=== PATIENT | male | born 1985 | race Caucasian/White ===

== ENCOUNTER 2021-02-02 04:34 | Emergency (ER) | payer OTHER ==
[2021-02-02 04:41] VITALS: BP 147/89; PULSE 91; RESP 16; TEMP 97.7
--- NOTE | 2021-02-02 05:14 | ED ---
Nausea/Vomiting/Diarrhea HPI - General Chief complaint: Nausea/Vomiting/Diarrhea Stated complaint: Dental Pain Time Seen by Provider: 02/02/21 04:54 Source: patient Mode of arrival: ambulatory Limitations: no limitations - History of Present Illness Initial comments: This patient is a 35-year-old man who presents to have evaluation for nausea and vomiting. Patient states that the symptoms had come on this evening. He is concerned that it could be related to one of 2 things. He has a right maxillary tooth that he was concerned may be developing infection, and he also had eaten some food he was suspicious of. In relation to the tooth, he is not having fever or chills, no tooth pain and there is no local swelling. He is not having any abdominal pain. No change in bowel movements. No hematemesis. MD complaint: nausea, vomiting -: hour(s) Description of Vomiting: food contents Associated Abdominal Pain: No Radiation: none Improves with: none Worsens with: none Associated Symptoms: denies other symptoms - Related Data Previous Rx's Medication Instructions Recorded Amoxicillin 875 mg PO Q12HR #14 tablet 02/02/21 Ondansetron Odt [Zofran ODT] 4 mg PO Q8HR PRN #10 tab 02/02/21 Allergies Allergy/AdvReac Type Severity Reaction Status Date / Time No Known Allergies Allergy Verified 02/02/21 04:41 Review of Systems ROS Statement: Those systems with pertinent positive or pertinent negative responses have been documented in the HPI. ROS Other: All systems not noted in ROS Statement are negative. Constitutional: Denies: fever, chills Eyes: Denies: eye pain ENT: Denies: dental pain Respiratory: Denies: cough, dyspnea Cardiovascular: Denies: chest pain Gastrointestinal: Reports: nausea, vomiting. Denies: abdominal pain, diarrhea, constipation Genitourinary: Denies: dysuria, hematuria Musculoskeletal: Denies: back pain Skin: Denies: rash, lesions Neurological: Denies: weakness, numbness Past Medical History Past Medical History: No Reported History Past Surgical History: No Surgical Hx Reported Past Psychological History: No Psychological Hx Reported Smoking Status: Current every day smoker Past Alcohol Use History: Rare Past Drug Use History: Cocaine, Methamphetamine General Exam Limitations: no limitations General appearance: alert, in no apparent distress Head exam: Present: atraumatic, normocephalic Eye exam: Present: normal appearance, EOMI. Absent: scleral icterus, conjunctival injection ENT exam: Present: normal oropharynx, other (Dental caries, tooth #2. There is no abscess) Neck exam: Present: full ROM. Absent: tenderness Respiratory exam: Present: normal lung sounds bilaterally. Absent: respiratory distress, wheezes, rales, rhonchi Cardiovascular Exam: Present: regular rate, normal rhythm, normal heart sounds. Absent: systolic murmur, diastolic murmur, rubs, gallop GI/Abdominal exam: Present: soft. Absent: distended, tenderness, guarding, rebound, rigid, mass Neurological exam: Present: alert Skin exam: Present: warm, dry, intact, normal color. Absent: rash Course Vital Signs 02/02/21 04:36 Temperature 97.7 F Pulse Rate 91 Respiratory 16 Rate Blood Pressure 147/89 O2 Sat by Pulse 98 Oximetry Disposition Clinical Impression: Vomiting, Dental caries Disposition: HOME SELF-CARE Instructions (If sedation given, give patient instructions): Acute Nausea and Vomiting (ED) Prescriptions: Amoxicillin 875 mg PO Q12HR #14 tablet Ondansetron Odt [Zofran ODT] 4 mg PO Q8HR PRN #10 tab PRN Reason: Nausea Is patient prescribed a controlled substance at d/c from ED?: No Referrals: None,Stated [Primary Care Provider] - 1-2 days
[2021-02-02] MEDS ORDERED: ONDANSETRON ODT 4 MG TAB PO STA (05:18)
== END 2021-02-02 05:31 | disposition home or self-care (01) ==
LOC: EC 04:34
DX: R11.2 Nausea with vomiting, unspecified (principal); K02.9 Dental caries, unspecified; F17.200 Nicotine dependence, unspecified, uncomplicated
CPT/HCPCS: 99283

== ENCOUNTER 2023-12-27 12:25 | Emergency (ER) | payer OTHER ==
--- NOTE | 2023-12-27 12:44 | ED ---
Recheck HPI - General Chief Complaint: Recheck/Abnormal Lab/Rx Stated Complaint: abnormal labs/recheck Time Seen by Provider: 12/27/23 12:35 Source: patient, RN notes reviewed Mode of arrival: ambulatory Limitations: no limitations - History of Present Illness Initial Comments: This is a 38-year-old male who presents to the emergency department for a med ication refill. Patient has been on Zoloft, 50 mg, for a long period of time and states that this works very well for him. He is trying to find a new primary care provider, and was concerned about running out, so he began splitting the pills in half, and states that he noticed that these are not as effective at the smaller dose. He is requesting a short-term refill and a list of local primary care providers to become established for ongoing medical care. Denies any suicidal or homicidal ideations and he has no other concerns or complaints. MD Complaint: medication refill request - Related Data Previous Rx's Medication Instructions Recorded Amoxicillin 875 mg PO Q12HR #14 tablet 02/02/21 Ondansetron Odt [Zofran ODT] 4 mg PO Q8HR PRN #10 tab 02/02/21 Sertraline [Zoloft] 50 mg PO DAILY #30 tab 12/27/23 Allergies Allergy/AdvReac Type Severity Reaction Status Date / Time No Known Allergies Allergy Verified 02/02/21 04:41 Review of Systems ROS Statement: Those systems with pertinent positive or pertinent negative responses have been documented in the HPI. ROS Other: All systems not noted in ROS Statement are negative. Past Medical History Past Medical History: No Reported History Past Surgical History: No Surgical Hx Reported Past Psychological History: Anxiety Smoking Status: Current every day smoker Past Alcohol Use History: Rare Past Drug Use History: Cocaine, Methamphetamine General Exam Limitations: no limitations General appearance: alert, in no apparent distress Head exam: Present: atraumatic, normocephalic, normal inspection Respiratory exam: Present: normal lung sounds bilaterally. Absent: respiratory distress, wheezes, rales, rhonchi, stridor Cardiovascular Exam: Present: regular rate, normal rhythm, normal heart sounds. Absent: systolic murmur, diastolic murmur, rubs, gallop, clicks Neurological exam: Present: alert, oriented X3, CN II-XII intact Psychiatric exam: Present: normal affect, normal mood Skin exam: Present: warm, dry, intact, normal color. Absent: rash Course Vital Signs 12/27/23 12:30 Temperature 98.6 F Pulse Rate 84 Respiratory 16 Rate Blood Pressure 120/78 O2 Sat by Pulse 98 Oximetry Medical Decision Making - Medical Decision Making This is a 38-year-old male who presents to the emergency department for medication refills. Was pt. sent in by a medical professional or institution? @ -No Did you speak to anyone other than the patient for history? @ -No Did you review nursing and triage notes? @ -Yes, and I agree, it is accurate with regards to the patient's symptoms. Were old charts reviewed? @ -No Differential Diagnosis? @ -Not applicable EKG interpreted by me (3pts min.)? @ -Not obtained X-rays interpreted by me (1pt min.)? @ -Not obtained CT interpreted by me (1pt min.)? @ -Not obtained U/S interpreted by me (1pt. min.)? @ -Not obtained What testing was considered but not performed? (CT, X-rays, U/S, labs)? Why? @ -None What meds were considered but not given? Why? @ -None Did you discuss the management of the patient with other professionals? @ -No Did you reconcile home meds? @ -No Was smoking cessation discussed for >3mins.? @ -No Was critical care preformed (if so, how long)? @ -No Were there social determinants of health that impacted care today? How? (Homelessness, low income, unemployed, alcoholism, drug addiction, transportati on, low edu. Level, literacy, decrease access to med. care, correction, rehab)? @ -No Was there de-escalation of care discussed even if they declined? (Discuss DNR or withdrawal of care, Hospice)? @ -No What co-morbidities impacted this encounter? (DM, HTN, Smoking, COPD, CAD, Cancer, CVA, Hep., AIDS, mental health diagnosis, sleep apnea, morbid obesity)? @ -Mental health diagnosis Was patient admitted / discharged? @ -Discharged. Refill on Zoloft, 50mg, was provided. He was also given a list of local primary care providers as requested and discharged home in stable condition. Undiagnosed new problem with uncertain prognosis? @ -None Drug Therapy requiring intensive monitoring for toxicity (Heparin, Nitro, Insulin, Cardizem)? @ -None Were any procedures done? @ -None Diagnosis/symptom? @ -Encounter for medication refill Acute, or Chronic, or Acute on Chronic? @ -Acute Uncomplicated (without systemic symptoms) or Complicated (systemic symptoms)? @ -Uncomplicated Side effects of treatment? @ -None Exacerbation, Progression, or Severe Exacerbation] @ -Not applicable Poses a threat to life or bodily function? @ -No Return precautions reviewed in depth, the patient is instructed to return to the emergency department with any new, worsening, or concerning symptoms. Patient verbalized understanding. This case was discussed in detail with the attending ED physician, Dr. Collier. Presentation, findings, and treatment plan discussed in detail as well. Disposition Clinical Impression: Encounter for medication refill Disposition: HOME SELF-CARE Additional Instructions: Return to the emergency department with any new, worsening, or concerning symptoms. Continue taking your Zoloft daily as prescribed. Use the list of local primary care providers to become established for ongoing medical care. Prescriptions: Sertraline [Zoloft] 50 mg PO DAILY #30 tab Is patient prescribed a controlled substance at d/c from ED?: No Referrals: None,Stated [Primary Care Provider] - 1-2 days Forms: Area PCPs Time of Disposition: 12:44
[2023-12-27 12:48] VITALS: BP 120/78; PULSE 84; RESP 16; TEMP 98.6
== END 2023-12-27 13:00 | disposition home or self-care (01) ==
LOC: EC 12:25
DX: Z76.0 Encounter for issue of repeat prescription (principal); F17.200 Nicotine dependence, unspecified, uncomplicated; Z86.59 Personal history of other mental and behavioral disorders
CPT/HCPCS: 99282

== ENCOUNTER 2024-11-17 22:44 | Inpatient (IN) | payer MEDICAID, OTHER ==
--- NOTE | 2024-11-17 23:42 | ED ---
General Adult HPI - General Chief complaint: Psychiatric Symptoms Stated complaint: Psych eval Time Seen by Provider: 11/17/24 23:02 Source: patient, EMS, RN notes reviewed, old records reviewed Mode of arrival: EMS Limitations: no limitations - History of Present Illness Initial comments: Patient is a 39-year-old male who presents emergency department for suicide attempt. Patient has a history of auditory hallucinations, suicidal ideations. Does not follow-up with a therapist. Has not been evaluated. Mental health previously at our facility. States that at home today, he tied zip ties around his neck. Previously has attempted suicide by holding a rolled up pillowcase around his neck however he stopped. Therefore use of ties as he felt he could not is easily removed these. States that soon as he tighten them he was having issues breathing and called for help. They were able to cut the zip ties off. They did leave an imprint around his neck. He denies any acute complaints at this time. Denies chest pain or shortness of breath. Did not faint or lose consciousness. Has no significant past medical history otherwise. Was drinking some alcohol today as well as a history of polysubstance abuse but states he has been clean other than alcohol. Presents for further evaluation at this time. - Related Data Previous Rx's Medication Instructions Recorded Amoxicillin 875 mg PO Q12HR #14 tablet 02/02/21 Ondansetron Odt [Zofran ODT] 4 mg PO Q8HR PRN #10 tab 02/02/21 Sertraline [Zoloft] 50 mg PO DAILY #30 tab 12/27/23 Allergies Allergy/AdvReac Type Severity Reaction Status Date / Time No Known Allergies Allergy Verified 11/17/24 23:14 Review of Systems ROS Statement: Those systems with pertinent positive or pertinent negative responses have been documented in the HPI. Review of Systems: CONST: Denies fever EYES: Denies blurry vision ENT: Denies nasal congestion C/V: Denies Chest pain RESP: Denies shortness of breath GI: Denies abdominal pain : Denies dysuria SKIN: Denies rash. MSK: Denies joint pain. NEURO: Denies headache ROS Other: All systems not noted in ROS Statement are negative. Past Medical History Past Medical History: No Reported History History of Any Multi-Drug Resistant Organisms: None Reported Past Surgical History: No Surgical Hx Reported Past Psychological History: Anxiety, Depression Smoking Status: Current every day smoker Past Alcohol Use History: Rare Past Drug Use History: Cocaine, Methamphetamine General Exam - General Exam Comments Initial Comments: General: Appears in no acute distress. HEAD: Normal with no signs of head trauma. Baker sign. Negative raccoon eyes. EYES: PERRLA, EOMI, conjunctiva normal, no discharge. Pupils are 3 mm and equal bilaterally. ENT: Hearing grossly intact, normal oropharynx. Patient has time shaffer on his neck and imprints but no obvious wounds or bleeding. No stridor auscultated. No respiratory distress. Oropharynx is within normal limits. RESPIRATORY: Clear breath sounds bilaterally. No wheezes, rales, or rhonchi. No wheezing. Clear breath sounds bilaterally. No hypoxia or increased work of breathing. C/V: Regular rate and rhythm. S1 and S2 auscultated, no edema, peripheral pulses 2+ and intact throughout ABD: Abd is soft, nontender, nondistended EXT: Normal range of motion, no obvious deformity SKIN: No rashes or lesions observed on exposed skin. NEURO: Alert and oriented x 4. Cranial nerves II-XII intact. No focal sensory or strength deficits. Limitations: no limitations Course Vital Signs 11/17/24 22:49 Temperature 97.9 F Pulse Rate 74 Respiratory 18 Rate Blood Pressure 121/87 O2 Sat by Pulse 98 Oximetry Medical Decision Making - Medical Decision Making Was pt. sent in by a medical professional or institution ([facility], [employer], urgent care, hospital, or intermediate...) When possible be specific @ -No Did you speak to anyone other than the patient for history (EMS, parent, family, police, friend...)? What history was obtained from this source @ -No Did you review nursing and triage notes (agree or disagree)? Why? @ -I reviewed and agree with nursing and triage notes Were old charts reviewed (outside hosp., previous admission, EMS record, old EKG, old radiological studies, urgent care reports/EKG's, intermediate records)? Report findings @ -No old charts were reviewed Differential Diagnosis (chest pain, altered mental status, abdominal pain women, abdominal pain men, vaginal bleeding, weakness, fever, dyspnea, syncope, headache, dizziness, GI bleed, back pain, seizure, CVA, palpatations, mental health, musculoskeletal)? @ -Differential Mental Health Depression, anxiety, bipolar, psychosis, schizophrenia, borderline personality, situational depression, adjustment disorder, behavioral disorder, brain tumor, malingering, substance abuse, encephalopathy, medication reaction, dementia, hypothyroidism, degenerative neurologic disorder, lupus.... This is not meant to be all-inclusive list. Also includes carotid artery injury. EKG interpreted by me (3pts min.). @ -As above X-rays interpreted by me (1pt min.). @ -Chest x-ray reveals no obvious acute cardiopulmonary process. CT interpreted by me (1pt min.). @ -CT brain showed no obvious acute intracranial process. CT angiogram of the head and neck shows no obvious significant stenosis or injury. U/S interpreted by me (1pt. min.). @ -None done What testing was considered but not performed or refused? (CT, X-rays, U/S, labs)? Why? @ -None What meds were considered but not given or refused? Why? @ -None Did you discuss the management of the patient with other professionals (professionals i.e. , PA, VEGETABLE F[employer]ER, lab, RT, psych nurse, social media project manager, employment coordinator, teacher, deputy juvenile officer, case briefer)? Give summary @ -No Was smoking cessation discussed for >3mins.? @ -No Was critical care preformed (if so, how long)? @ -No Were there social determinants of health that impacted care today? How? (Homele ssness, low income, unemployed, alcoholism, drug addiction, transportation, low edu. Level, literacy, decrease access to med. care, detention, rehab)? @ -No Was there de-escalation of care discussed even if they declined (Discuss DNR or withdrawal of care, Hospice)? DNR status @ -No What co-morbidities impacted this encounter? (DM, HTN, Smoking, COPD, CAD, Cancer, CVA, ARF, Chemo, Hep., AIDS, mental health diagnosis, sleep apnea, morbid obesity)? @ -None Was patient admitted / discharged? Hospital course, mention meds given and route, prescriptions, significant lab abnormalities, going to OR and other pertinent info. @ -Patient presents emergency department for suicide attempt. Patient attem pted to tie zip ties around his neck. Does have imprints of the zip ties but no carotid bruit and no evidence of stridor auscultated. We will obtain CT imaging of the neck as well as brain. We will also obtain basic labs and COVID swab. Suicide precautions ordered. Sitter ordered. Patient is in no respiratory distress and vital signs are within acceptable limits. Patient was in agreement this plan. He will be given a 1 L fluid bolus at this time. EKG shows no signs of acute ischemia.Imaging returned negative for any obvious acute process. There was a long delay in obtaining CT brain and CT angiogram image results due to delay from radiology however these eventually came back negative for any obvious acute process. Laboratory studies are unremarkable. Alcohol intoxication of 64 On reevaluation, I discussed the results with the patient. Patient is medically cleared for evaluation by psychiatry at this time. Disposition pending psychiatric evaluation. He was in agreement this plan. EPS evaluated the patient and determined that he does meet inpatient psychiatric criteria. Patient requires transfer. Clinical certificate completed by myself. Undiagnosed new problem with uncertain prognosis? @ -No Drug Therapy requiring intensive monitoring for toxicity (Heparin, Nitro, Insulin, Cardizem)? @ -No Were any procedures done? @ -No Diagnosis/symptom? @ -Suicide attempt, Alcohol intoxication Acute, or Chronic, or Acute on Chronic? @ -Acute Uncomplicated (without systemic symptoms) or Complicated (systemic symptoms)? @ -Complicated Side effects of treatment? @ -None Exacerbation, Progression, or Severe Exacerbation] @ -No Poses a threat to life or bodily function? @ -Yes - Lab Data Result diagrams: 11/17/24 23:08 11/17/24 23:08 Lab Results 11/17/24 11/17/24 11/17/24 Range/Units 23:08 23:08 23:08 WBC 10.2 (3.8-10.6) k/uL RBC 4.95 (4.30-5.90) m/uL Hgb 15.4 (13.0-17.5) gm/dL Hct 44.6 (39.0-53.0) % MCV 90.2 (80.0-100.0) fL MCH 31.2 (25.0-35.0) pg MCHC 34.6 (31.0-37.0) g/dL RDW 12.0 (11.5-15.5) % Plt Count 271 (150-450) k/uL MPV 7.3 Neutrophils % 72 % Lymphocytes % 19 % Monocytes % 5 % Eosinophils % 2 % Basophils % 1 % Neutrophils # 7.4 (1.3-7.7) k/uL Lymphocytes # 1.9 (1.0-4.8) k/uL Monocytes # 0.5 (0-1.0) k/uL Eosinophils # 0.2 (0-0.7) k/uL Basophils # 0.1 (0-0.2) k/uL PT 10.7 (10.0-12.5) sec INR 1.0 (<1.2) APTT 23.6 (22.0-30.0) sec Sodium (137-145) mmol/L Potassium (3.5-5.1) mmol/L Chloride (98-107) mmol/L Carbon Dioxide (22-30) mmol/L Anion Gap mmol/L BUN (9-20) mg/dL Creatinine (0.66-1.25) mg/dL Est GFR (CKD-EPI)AfAm (>60 ml/min/1.73 sqM) Est GFR (CKD-EPI)NonAf (>60 ml/min/1.73 sqM) Glucose (74-99) mg/dL Calcium (8.4-10.2) mg/dL Total Bilirubin (0.2-1.3) mg/dL AST (17-59) U/L ALT (4-49) U/L Alkaline Phosphatase (38-126) U/L Total Protein (6.3-8.2) g/dL Albumin (3.5-5.0) g/dL Urine Color Colorless Urine Appearance Clear (Clear) Urine pH 6.0 (5.0-8.0) Ur Specific [place] 1.004 (1.001-1.035) Urine Protein Negative (Negative) Urine Glucose (UA) Negative (Negative) Urine Ketones Negative (Negative) Urine Blood Negative (Negative) Urine Nitrite Negative (Negative) Urine Bilirubin Negative (Negative) Urine Urobilinogen <2.0 (<2.0) mg/dL Ur Leukocyte Esterase Negative (Negative) Urine Opiates Screen (NotDetected) Ur Oxycodone Screen (NotDetected) Urine Methadone Screen (NotDetected) Ur Barbiturates Screen (NotDetected) U Tricyclic Antidepress (NotDetected) Ur Phencyclidine Scrn (NotDetected) Ur Amphetamines Screen (NotDetected) U Methamphetamines Scrn (NotDetected) U Benzodiazepines Scrn (NotDetected) Urine Cocaine Screen (NotDetected) U Marijuana (THC) Screen (NotDetected) Serum Alcohol mg/dL SARS-CoV-2 (PCR) (Not Detectd) 11/17/24 11/17/24 11/17/24 Range/Units 23:08 23:10 23:10 WBC (3.8-10.6) k/uL RBC (4.30-5.90) m/uL Hgb (13.0-17.5) gm/dL Hct (39.0-53.0) % MCV (80.0-100.0) fL MCH (25.0-35.0) pg MCHC (31.0-37.0) g/dL RDW (11.5-15.5) % Plt Count (150-450) k/uL MPV Neutrophils % % Lymphocytes % % Monocytes % % Eosinophils % % Basophils % % Neutrophils # (1.3-7.7) k/uL Lymphocytes # (1.0-4.8) k/uL Monocytes # (0-1.0) k/uL Eosinophils # (0-0.7) k/uL Basophils # (0-0.2) k/uL PT (10.0-12.5) sec INR (<1.2) APTT (22.0-30.0) sec Sodium 137 (137-145) mmol/L Potassium 3.6 (3.5-5.1) mmol/L Chloride 102 (98-107) mmol/L Carbon Dioxide 21 L (22-30) mmol/L Anion Gap 14 mmol/L BUN 16 (9-20) mg/dL Creatinine 0.81 (0.66-1.25) mg/dL Est GFR (CKD-EPI)AfAm >90 (>60 ml/min/1.73 sqM) Est GFR (CKD-EPI)NonAf >90 (>60 ml/min/1.73 sqM) Glucose 97 (74-99) mg/dL Calcium 9.9 (8.4-10.2) mg/dL Total Bilirubin 0.7 (0.2-1.3) mg/dL AST 38 (17-59) U/L ALT 26 (4-49) U/L Alkaline Phosphatase 58 (38-126) U/L Total Protein 7.8 (6.3-8.2) g/dL Albumin 5.1 H (3.5-5.0) g/dL Urine Color Urine Appearance (Clear) Urine pH (5.0-8.0) Ur Specific [place] (1.001-1.035) Urine Protein (Negative) Urine Glucose (UA) (Negative) Urine Ketones (Negative) Urine Blood (Negative) Urine Nitrite (Negative) Urine Bilirubin (Negative) Urine Urobilinogen (<2.0) mg/dL Ur Leukocyte Esterase (Negative) Urine Opiates Screen Not Detected (NotDetected) Ur Oxycodone Screen Not Detected (NotDetected) Urine Methadone Screen Not Detected (NotDetected) Ur Barbiturates Screen Not Detected (NotDetected) U Tricyclic Antidepress Not Detected (NotDetected) Ur Phencyclidine Scrn Not Detected (NotDetected) Ur Amphetamines Screen Not Detected (NotDetected) U Methamphetamines Scrn Not Detected (NotDetected) U Benzodiazepines Scrn Not Detected (NotDetected) Urine Cocaine Screen Not Detected (NotDetected) U Marijuana (THC) Screen Detected H (NotDetected) Serum Alcohol 62 mg/dL SARS-CoV-2 (PCR) Not Detected (Not Detectd) - EKG Data -: EKG Interpreted by Me EKG Comments: 12-lead Electrocardiogram Interpretation Note EKG was reviewed and interpreted by myself. 12-lead ECG performed at 2353 is interpreted by me as revealing sinus bradycardia at a rate of 58 beats per minute. [place] is normal. ND interval is 198 ms, QRS durations 88 ms, QTc is 393 ms.. There were no ST or T wave abnormalities to suggest myocardial ischemia or injury. R wave progression across the precordium was satisfactory. By my interpretation this EKG is non-diagnostic for acute ischemia. Disposition Clinical Impression: Attempted suicide, Alcohol intoxication Disposition: TRANSFER TO PSYCH HOSP/UNIT Condition: Stable Referrals: Lucio Head MD [Primary Care Provider] - 1-2 days Time of Disposition: 06:19
[2024-11-17] MEDS: SODIUM CHLORIDE 0.9% 1,000 ML IV STA (23:43)
[2024-11-17 23:44] LABS: Basophils # (A) 0.1 k/uL (0-0.2); Basophils % (A) 1 %; Eosinophils # (A) 0.2 k/uL (0-0.7); Eosinophils % (A) 2 %; HCT 44.6 % (39.0-53.0); HGB 15.4 gm/dL (13.0-17.5); Lymphocytes # (A) 1.9 k/uL (1.0-4.8); Lymphocytes % (A) 19 %; MCH 31.2 pg (25.0-35.0); MCHC 34.6 g/dL (31.0-37.0); MCV 90.2 fL (80.0-100.0); Mean Platelet Volume 7.3; Monocytes # (A) 0.5 k/uL (0-1.0); Monocytes % (A) 5 %; Neutrophils # (A) 7.4 k/uL (1.3-7.7); Neutrophils % (A) 72 %; Platelet Count 271 k/uL (150-450); RBC 4.95 m/uL (4.30-5.90); WBC 10.2 k/uL (3.8-10.6)
[2024-11-17 23:47] LABS: Appearance,Urine Clear (Clear); Bilirubin,Urine Negative (Negative); Blood,Urine Negative (Negative); Color,Urine Colorless; Glucose,Urine (UA) Negative (Negative); Ketones,Urine Negative (Negative); Leukocyte Esterase,Urine Negative (Negative); Nitrite,Urine Negative (Negative); Protein,Urine Negative (Negative); Specific Gravity,Urine 1.004 (1.001-1.035); Urobilinogen,Urine <2.0 mg/dL (<2.0)
[2024-11-17 23:55] LABS: Partial Thromboplastin Time 23.6 sec (22.0-30.0); Prothrombin Time 10.7 sec (10.0-12.5)
[2024-11-17 23:59] LABS: Amphetamine Screen,Urine Not Detected (NotDetected); Barbiturate Screen,Urine Not Detected (NotDetected); Benzodiazepines Screen,Urine Not Detected (NotDetected); Cocaine Screen,Urine Not Detected (NotDetected); Methadone Screen, Urine Not Detected (NotDetected); Opiate Screen,Urine Not Detected (NotDetected); Oxycodone Screen, Urine Not Detected (NotDetected); Phencyclidine Screen,Urine Not Detected (NotDetected); Tricyclic Antidepressant,Urine Not Detected (NotDetected); Urn Cannabinoid Scrn Detected (NotDetected)
[2024-11-18 00:29] LABS: ALT 26 U/L (4-49); AST 38 U/L (17-59); African American GFR (CKD) >90 (>60 ml/min/1.73 sqM); Albumin 5.1 g/dL (3.5-5.0); Alcohol 62 mg/dL; Alkaline Phosphatase 58 U/L (38-126); Anion Gap 14 mmol/L; Blood Urea Nitrogen 16 mg/dL (9-20); Calcium 9.9 mg/dL (8.4-10.2); Carbon Dioxide 21 mmol/L (22-30); Chloride 102 mmol/L (98-107); Glucose 97 mg/dL (74-99); Non-African American GFR(CKD) >90 (>60 ml/min/1.73 sqM); Potassium 3.6 mmol/L (3.5-5.1); Sodium 137 mmol/L (137-145); Total Bilirubin 0.7 mg/dL (0.2-1.3); Total Protein 7.8 g/dL (6.3-8.2)
--- NOTE | 2024-11-18 01:01 | CT ---
EXAM: CT Head Without Intravenous Contrast CLINICAL HISTORY: ITS.REASON CT Reason: attempted asphyxiation TECHNIQUE: Axial computed tomography images of the head/brain without intravenous contrast. CTDI is 48.8 mGy and DLP is 1144 mGy-cm. This CT exam was performed using one or more of the following dose reduction techniques: automated exposure control, adjustment of the mA and/or kV according to patient size, and/or use of iterative reconstruction technique. COMPARISON: No relevant prior studies available. FINDINGS: No acute intracranial hemorrhage. No midline shift or mass effect. The territorial anthony-white matter differentiation is maintained throughout. The ventricles and sulci are commensurate with age. The visualized orbits appear grossly unremarkable. The calvarium is intact. The visualized paranasal sinuses and mastoid air cells are grossly clear. IMPRESSION: No acute intracranial hemorrhage, midline shift, or mass effect.
--- NOTE | 2024-11-18 01:19 | XR ---
EXAM: XR Chest, 1 View CLINICAL HISTORY: ITS.REASON XR Reason: abdominal pain TECHNIQUE: Frontal view of the chest. COMPARISON: No relevant prior studies available. FINDINGS: Lungs: Unremarkable. No consolidation. Pleural space: Unremarkable. No pneumothorax. Heart: Unremarkable. No cardiomegaly. Mediastinum: Unremarkable. Normal mediastinal contour. Bones/joints: Unremarkable. No acute fracture. IMPRESSION: Normal chest x-ray.
--- NOTE | 2024-11-18 04:31 | CT ---
EXAM: CT Angiography Head With Intravenous Contrast CLINICAL HISTORY: ITS.REASON CT Reason: attempted asphyxiation TECHNIQUE: Axial computed tomographic angiography images of the head with intravenous contrast. CTDI is 12.1 mGy and DLP is 243.65 mGy-cm. This CT exam was performed using one or more of the following dose reduction techniques: automated exposure control, adjustment of the mA and/or kV according to patient size, and/or use of iterative reconstruction technique. MIP reconstructed images were created and reviewed. COMPARISON: No relevant prior studies available. FINDINGS: Right internal carotid artery: No significant stenosis. No aneurysm. Right anterior cerebral artery: No significant stenosis. No aneurysm. Right middle cerebral artery: No significant stenosis. No aneurysm. Right posterior cerebral artery: No significant stenosis. No aneurysm. Right vertebral artery: Unremarkable. Left internal carotid artery: No significant stenosis. No aneurysm. Left anterior cerebral artery: No significant stenosis. No aneurysm. Left middle cerebral artery: No significant stenosis. No aneurysm. Left posterior cerebral artery: No significant stenosis. No aneurysm. Left vertebral artery: Unremarkable. Basilar artery: No significant stenosis. No aneurysm. IMPRESSION: No significant stenosis. EXAM: CT Angiography Neck With Intravenous Contrast CLINICAL HISTORY: ITS.REASON CT Reason: attempted asphyxiation TECHNIQUE: Routine carotid CT angiography protocol was performed with intravenous contrast. NASCET criteria using the distal ICAs for comparison were used for evaluation of stenoses. CTDI is 12.1 mGy and DLP is 246.65 mGy-cm. This CT exam was performed using one or more of the following dose reduction techniques: automated exposure control, adjustment of the mA and/or kV according to patient size, and/or use of iterative reconstruction technique. MIP reconstructed images were created and reviewed. COMPARISON: None. FINDINGS: VASCULATURE: Right common carotid artery: No significant stenosis. No dissection. Right internal carotid artery: No significant stenosis. No dissection. Right vertebral artery: No significant stenosis. No dissection. Left common carotid artery: No significant stenosis. No dissection. Left internal carotid artery: No significant stenosis. No dissection. Left vertebral artery: No significant stenosis. No dissection. NECK: Lung apices: Clear. CAROTID STENOSIS REFERENCE USING NASCET CRITERIA: % ICA stenosis = (1 - narrowest ICA diameter/diameter of distal cervical ICA) x 100. Mild - <50% stenosis. Moderate - 50-69% stenosis. Severe - 70-94% stenosis. Near occlusion - 95-99% stenosis. Occluded - 100% stenosis. IMPRESSION: No significant stenosis.
[2024-11-18] MEDS: LORazepam 1 MG TAB PO STA (05:29)
[2024-11-18] MEDS ORDERED: ACETAMINOPHEN TAB 325 MG TAB PO PRN (15:22)
[2024-11-18] MEDS ORDERED: MAGNESIUM HYDROXIDE 2,400 MG/30 ML CUP PO PRN (15:22)
[2024-11-18] MEDS ORDERED: MAG HYDROX/AL HYDROX/SIMETH 355 ML BOTTLE PO PRN (15:22)
[2024-11-18] MEDS ORDERED: haloperidoL 5 MG TAB PO PRN (15:22)
[2024-11-18] MEDS ORDERED: HALOPERIDOL LACTATE 5 MG/ML 1 ML VIAL IM PRN (15:22)
[2024-11-18] MEDS ORDERED: IBUPROFEN 600 MG TAB PO PRN (15:22)
[2024-11-18] MEDS ORDERED: LORazepam 2 MG/ML INJ IM PRN (15:22)
[2024-11-18] MEDS: SERTRALINE 50 MG TAB PO SCH (16:39)
[2024-11-18] MEDS: NICOTINE 14MG/24HR PATCH TRANSDERM SCH (16:39)
[2024-11-18] MEDS: LORazepam 1 MG TAB PO PRN (21:22)
[2024-11-18] MEDS: traZODone HCL 50 MG TAB PO PRN (22:51)
[2024-11-19] MEDS: MULTIVITAMINS, THERA 1 EACH TAB PO SCH (09:58)
[2024-11-19] MEDS: THIAMINE 100 MG TAB PO SCH (09:58)
[2024-11-19] MEDS: FOLIC ACID 1 MG TAB PO SCH (09:58)
[2024-11-19 10:49] LABS: ALT 26 U/L (4-49); AST 34 U/L (17-59); Albumin 5.4 g/dL (3.5-5.0); Alkaline Phosphatase 67 U/L (38-126); Bilirubin, Delta 0.1 mg/dL (0.0-0.2); Bilirubin,Unconjugated 0.8 mg/dL (0.0-1.1); Total Bilirubin 0.9 mg/dL (0.2-1.3); Total Protein 8.7 g/dL (6.3-8.2)
--- NOTE | 2024-11-19 12:38 | P.HP ---
Psychiatric H&P - . H&P Date: 11/19/24 History & Physical: Allergies Allergy/AdvReac Type Severity Reaction Status Date / Time No Known Allergies Allergy Verified 11/18/24 08:33 Vital Signs Temp 98.3 F 11/18/24 16:31 Pulse 61 11/18/24 16:31 Resp 16 11/18/24 16:31 BP 129/84 11/18/24 16:31 Pulse Ox 98 11/18/24 16:31 FiO2 Intake & Output 11/17/24 11/18/24 11/18/24 18:59 06:59 18:59 Weight 72.575 kg 69.309 kg Laboratory Last Values WBC 10.2 k/uL (3.8-10.6) 11/17/24 23:08 RBC 4.95 m/uL (4.30-5.90) 11/17/24 23:08 Hgb 15.4 gm/dL (13.0-17.5) 11/17/24 23:08 Hct 44.6 % (39.0-53.0) 11/17/24 23:08 MCV 90.2 fL (80.0-100.0) 11/17/24 23:08 MCH 31.2 pg (25.0-35.0) 11/17/24 23:08 MCHC 34.6 g/dL (31.0-37.0) 11/17/24 23:08 RDW 12.0 % (11.5-15.5) 11/17/24 23:08 Plt Count 271 k/uL (150-450) 11/17/24 23:08 MPV 7.3 11/17/24 23:08 Neutrophils % 72 % 11/17/24 23:08 Lymphocytes % 19 % 11/17/24 23:08 Monocytes % 5 % 11/17/24 23:08 Eosinophils % 2 % 11/17/24 23:08 Basophils % 1 % 11/17/24 23:08 Neutrophils # 7.4 k/uL (1.3-7.7) 11/17/24 23:08 Lymphocytes # 1.9 k/uL (1.0-4.8) 11/17/24 23:08 Monocytes # 0.5 k/uL (0-1.0) 11/17/24 23:08 Eosinophils # 0.2 k/uL (0-0.7) 11/17/24 23:08 Basophils # 0.1 k/uL (0-0.2) 11/17/24 23:08 PT 10.7 sec (10.0-12.5) 11/17/24 23:08 INR 1.0 (<1.2) 11/17/24 23:08 APTT 23.6 sec (22.0-30.0) 11/17/24 23:08 Sodium 137 mmol/L (137-145) 11/17/24 23:08 Potassium 3.6 mmol/L (3.5-5.1) 11/17/24 23:08 Chloride 102 mmol/L (98-107) 11/17/24 23:08 Carbon Dioxide 21 mmol/L (22-30) L 11/17/24 23:08 Anion Gap 14 mmol/L 11/17/24 23:08 BUN 16 mg/dL (9-20) 11/17/24 23:08 Creatinine 0.81 mg/dL (0.66-1.25) 11/17/24 23:08 Est GFR (CKD-EPI)AfAm >90 (>60 ml/min/1.73 sqM) 11/17/24 23:08 Est GFR (CKD-EPI)NonAf >90 (>60 ml/min/1.73 sqM) 11/17/24 23:08 Glucose 97 mg/dL (74-99) 11/17/24 23:08 Calcium 9.9 mg/dL (8.4-10.2) 11/17/24 23:08 Total Bilirubin 0.7 mg/dL (0.2-1.3) 11/17/24 23:08 AST 38 U/L (17-59) 11/17/24 23:08 ALT 26 U/L (4-49) 11/17/24 23:08 Alkaline Phosphatase 58 U/L (38-126) 11/17/24 23:08 Total Protein 7.8 g/dL (6.3-8.2) 11/17/24 23:08 Albumin 5.1 g/dL (3.5-5.0) H 11/17/24 23:08 Urine Color Colorless 11/17/24 23:08 Urine Appearance Clear (Clear) 11/17/24 23:08 Urine pH 6.0 (5.0-8.0) 11/17/24 23:08 Ur Specific [place] 1.004 (1.001-1.035) 11/17/24 23:08 Urine Protein Negative (Negative) 11/17/24 23:08 Urine Glucose (UA) Negative (Negative) 11/17/24 23:08 Urine Ketones Negative (Negative) 11/17/24 23:08 Urine Blood Negative (Negative) 11/17/24 23:08 Urine Nitrite Negative (Negative) 11/17/24 23:08 Urine Bilirubin Negative (Negative) 11/17/24 23:08 Urine Urobilinogen <2.0 mg/dL (<2.0) 11/17/24 23:08 Ur Leukocyte Esterase Negative (Negative) 11/17/24 23:08 Urine Opiates Screen Not Detected (NotDetected) 11/17/24 23:10 Ur Oxycodone Screen Not Detected (NotDetected) 11/17/24 23:10 Urine Methadone Screen Not Detected (NotDetected) 11/17/24 23:10 Ur Barbiturates Screen Not Detected (NotDetected) 11/17/24 23:10 U Tricyclic Antidepress Not Detected (NotDetected) 11/17/24 23:10 Ur Phencyclidine Scrn Not Detected (NotDetected) 11/17/24 23:10 Ur Amphetamines Screen Not Detected (NotDetected) 11/17/24 23:10 U Methamphetamines Scrn Not Detected (NotDetected) 11/17/24 23:10 U Benzodiazepines Scrn Not Detected (NotDetected) 11/17/24 23:10 Urine Cocaine Screen Not Detected (NotDetected) 11/17/24 23:10 U Marijuana (THC) Screen Detected (NotDetected) H 11/17/24 23:10 Serum Alcohol 62 mg/dL 11/17/24 23:08 SARS-CoV-2 (PCR) Not Detected (Not Detectd) 11/17/24 23:10 Dictation was produced using [employer] dictation software. Please excuse any grammatical, word or spelling errors. IDENTIFYING DATA: Patient is a 39 years old male with past psychiatric history of suicidal ideation and polysubstance use, presented to the ED for suicidal attempt. The history of auditory hallucination and suicidal ideation. Reported that he tried to tie a zip around his neck. Reported previous attempt via holding rollup pillow case around his neck however he stopped. He reported he had some issue breathing and he called for help, they were able to cut the zip tie off, he has imprint around his neck. he does not follow up with a therapist or a psychiatrist. upon evaluation in the unit, he states that he tried to commit suicide via tying a zip around his neck, he states that he has been struggling with a lot of voices lately and he was drinking alcohol, reported that he came home from the bar, went to his room and tried to end his life. States that his daughter was in the next room with her boyfriend and they heard him and they called ambulance. He admitted to feeling down, sad, depressed, hopeless, helpless, worthless, he denied any current suicidal or homicidal thoughts and reported that he regrets what he did. States that he would like to get some help. States that he attempt suicide 6 months ago via using a pillowcase. He admitted to high anxiety. Denied any manic or hypomanic symptoms. Reported that he has been having auditory hallucination of a female voice for 3 years as he was from his . States that he is paranoid and feels like he has been followed all the time. Reported that he has been using alcohol for the last 2-1/2 to 3 years, reported he had 2 previous DUIs, denied any previous rehab. Reported that he used methamphetamine stopped 3 years ago, admitted to previous history of cocaine and other substance use. Reported he has been using cannabis daily. He denied having access to firearms or guns. PAST PSYCHIATRIC HISTORY: - Inpatient Hospitalizations: None - Outpatient Care: None - Current Psychotropics: Zoloft 100 mg - Prior Psychotropics/Therapy: none - Prior Psychiatric dx: anxiety, depression - Suicidal Attempts: 3 attempt in the last yr PMH: as per ER note Past Medical History: No Reported History History of Any Multi-Drug Resistant Organisms: None Reported Past Surgical History: No Surgical Hx Reported Past Psychological History: Anxiety, Depression Smoking Status: Current every day smoker Past Alcohol Use History: Rare Past Drug Use History: Cocaine, Methamphetamine ALLERGIES: as per EMR CHEMICAL DEPENDENCY HISTORY: as per HPI - Tobacco: nicotine pouches - Alcohol: started 2.5 yrs ago, 4 cans or beer daily, 2 DUI in the past, hx of black out, no hx of alcohol withdrawal, no hx of rehab - Illicit Drugs: quit methamphetamine 3 yrs ago, used cocaine and many other substances - Cannabis: daily FAMILY PSYCHIATRIC/SUBSTANCE USE HISTORY: denies SOCIAL HISTORY: Patient was born and raised in [place], for 3 yrs, has 3 daughters, work for [id number] for 2.5 yrs. finished 10 grade, half-way multiple times last in May from DUI. MENTAL STATUS EXAM: General Appearance: Patient appears to be stated age is alert, directable, and attempts to cooperate. Patient appears to have fair hygiene and grooming. Behavior: Patient is seated without any agitated behavior. Speech: Patient's speech is fluent and nonpressured. Mood/Affect: Patient reports their mood is depressed, affect is congruent and constricted. Suicidality/Homicidality: Patient denies having any homicidal ideation intent or plan. Denies any suicidal ideations intent or plan Perceptions: Patient denies any visual hallucinations and admitted to having auditory hallucinations for the last 3 years, admitted to paranoia Though content/process: There is no evidence of any delusional thought content and thought process is linear and goal-directed. Memory and concentration: AOX3, grossly intact for the purposes of this session. Can spell "WORLD" backwards Judgment and insight: poor STRENGTHS/WEAKNESSES: strength is that patient is resilient. Weakness is that patient has poor judgment and is impulsive INTELLECT: average IMPRESSIONS: Major depressive disorder, moderate, severe, with psychotic features Alcohol use disorder Cannabis use disorder Nicotine use disorder Hx of Cocaine use disorder Hx of Methamphetamine use disorder PLAN: -Patient is admitted under voluntary status to [facility]HU for stabilization of psychiatric symptoms and safety. -Medications : Continue Zoloft 100 mg po daily Start Abilify 2.5 mg po hs Trazodone 50 mg prn hs -Ativan and Haldol PRN for agitation/aggression -Started thiamine, MVM for etoh use -CIWA protocol with Ativan PRN for ETOH withdrawal. -Patient was counselled on substance abuse and desired to cut back on use -Will offer patient subtance use rehab -Patient was informed of the risks, benefits and side effects of the medication and patient verbally consented to taking the medications. Patient signed med consent form and was placed in chart. -Internal Medicine consult to perform medical evaluation and physical. -NRT - nicotine patch -SW on board for discharge planning. Encourage patient to participate in groups to work on coping skills.
--- NOTE | 2024-11-19 15:16 | P.MDCNMH ---
History of Present Illness H&P Date: 11/19/24 This is a pleasant 39-year-old male who presented to the emergency department with suicide ideation and attempted suicide with zip ties around his neck. Patient reports he follows with Dr. Lucio Head in the outpatient setting with a past medical history of anxiety and depression, reports to smoking has a past medical history of cocaine and methamphetamine use and is positive for marijuana and occasionally drinks. Patient reports he has not been taking any medications and working full-time with increasing stressors having auditory hallucinations with suicidal ideation. Patient voluntarily admitted to [facility] for further psychiatric evaluation and care. On exam patient denies any chest pain, shortness of breath, or palpitations. Patient did undergo CT angio showing no significant stenosis and also a brain CT showing no acute intracranial hemorrhage or mass effect. Labs reviewed and within normal limits and urinalysis was negative with urine drug screen positive for marijuana otherwise negative. Patient was COVID-negative as well. REVIEW OF SYSTEMS: CONSTITUTIONAL: No fever, no malaise, no fatigue. HEENT: No recent visual problems or hearing problems. Denied any sore throat. CARDIOVASCULAR: No chest pain, orthopnea, PND, no palpitations, no syncope. PULMONARY: No shortness of breath, no cough, no hemoptysis. GASTROINTESTINAL: No diarrhea, no nausea, no vomiting, no abdominal pain. NEUROLOGICAL: No headaches, no weakness, no numbness. HEMATOLOGICAL: Denies any bleeding or petechiae. GENITOURINARY: Denies any burning micturition, frequency, or urgency. MUSCULOSKELETAL/RHEUMATOLOGICAL: Denies any joint pain, swelling, or any muscle pain. ENDOCRINE: Denies any polyuria or polydipsia. The rest of the 14-point review of systems is negative. PHYSICAL EXAMINATION: GENERAL: The patient is alert and oriented x3, not in any acute distress. Well developed, well nourished. Slightly anxious HEENT: Pupils are round and equally reacting to light. EOMI. No scleral icterus. No conjunctival pallor. Normocephalic, atraumatic. No pharyngeal erythema. No thyromegaly. No bruising or discoloration noted to the neck CARDIOVASCULAR: S1 and S2 present. No murmurs, rubs, or gallops. PULMONARY: Chest is clear to auscultation, no wheezing or crackles. ABDOMEN: Soft, nontender, nondistended, normoactive bowel sounds. No palpable organomegaly. MUSCULOSKELETAL: No joint swelling or deformity. EXTREMITIES: No cyanosis, clubbing, or pedal edema. NEUROLOGICAL: Gross neurological examination did not reveal any focal deficits. SKIN: No rashes. Assessment: Severe depression with suicidal ideation and suicidal attempt History of anxiety/depression THC use Daily alcohol use History of nicotine dependence History of polysubstance abuse with methamphetamine and cocaine GI prophylaxis Full code Plan: Patient voluntarily admitted to [facility] for further psychiatric evaluation and care Instructed patient to be compliant with medications along with psychiatry and group therapy sessions Encouraged increase activity as tolerated Encouraged following up with primary care provider once discharged Thank you kindly for this consultation The impression and plan of care has been dictated by Zaria Siu, Nurse Practitioner as directed. Dr. Sheila MD I have performed a history and examination and MDM of this patient, discussed the same with the dictator, and agree with the dictator's assessment and plan as written ,documented as a scribe. Based on total visit time, I have performed more than 50% of the visit. Past Medical History Past Medical History: No Reported History History of Any Multi-Drug Resistant Organisms: None Reported Past Surgical History: No Surgical Hx Reported Past Psychological History: Anxiety, Depression Smoking Status: Unknown if ever smoked Past Alcohol Use History: Daily Additional Past Alcohol Use History / Comment(s): 3-4 beers daily Past Drug Use History: Cocaine, Methamphetamine Additional Drug Use History / Comment(s): Pt states he has been clean from Meth and cocaine and pills for 3 years. Still smokes marijuana and drinks 3-4 beers daily Medications and Allergies Home Medications Medication Instructions Recorded Confirmed Type Sertraline [Zoloft] 50 mg PO DAILY #30 tab 12/27/23 11/18/24 Rx Allergies Allergy/AdvReac Type Severity Reaction Status Date / Time No Known Allergies Allergy Verified 11/18/24 08:33 Physical Exam Vitals: Vital Signs Temp Pulse Pulse Resp BP BP Pulse Ox 11/19/24 05:46 98.3 F 70 16 92/50 99 11/18/24 16:31 98.3 F 61 16 129/84 98 11/18/24 11:56 97.9 F 62 16 125/71 97 Intake and Output 11/18/24 11/19/24 11/19/24 22:59 06:59 14:59 Other: Weight 69.309 kg Cranial Nerve Examination - Cranial Nerves Cranial Nerve I- Olfactory: Intact Cranial Nerve II- Optic: Intact Cranial Nerve III- Oculomotor: Intact Cranial Nerve IV- Trochlear: Intact Cranial Nerve V- Trigeminal: Intact Cranial Nerve - Abducens: Intact Cranial Nerve VII- Facial: Intact Cranial Nerve VIII- Auditory: Intact Cranial Nerve IX- Glossopharyngeal: Intact Cranial Nerve X- Vagus: Intact Cranial Nerve XI- Accessory: Intact Cranial Nerve XII- Hypoglossal: Intact Results CBC & Chem 7: 11/17/24 23:08 11/17/24 23:08 Assessment and Plan Time with Patient: Less than 30
[2024-11-19 16:18] LABS: LDL Cholesterol,Calculated 147.3 mg/dL (0.0-131.0)
[2024-11-19] MEDS: ARIPiprazole 5 MG TAB PO SCH (20:54)
--- NOTE | 2024-11-20 11:21 | P.PN ---
Progress Note - Text Progress Note Date: 11/20/24 Interval history: Patient was seen wandering the hallways and was directable and agreeable to s peak with marketing copywriter. He appears to be fairly cooperative today with marketing copywriter. Claims that his mood has been mildly improving since yesterday, denies any anxiety today. Claims that he has been going to some groups more visible on the unit. Asked more questions about his medications which were answered. States that he slept fairly last night, has a fair appetite. At this time patient denies any suicidal or homicidal ideations intent or plan. Denies any Auditory or visual hallucinations. Patient denies any side effects from the medications and has been compliant with meds. Mental status exam: General Appearance: Patient appears to be thin, wearing glasses, stated age is alert, directable, and cooperative. Behavior: No agitated behavior. Patient is calm and directable cooperative Speech: Patient's speech is fluent and nonpressured. Mood/Affect: Mood is improving mildly, affect is congruent and constricted. Suicidality/Homicidality: Patient denies having any suicidal or homicidal idea tion intent or plan. Perceptions: Patient denies any auditory or visual hallucinations. Though content/process: There is no evidence of any delusional thought content and thought process is linear and goal-directed. Memory and concentration: AOX3, grossly intact for the purposes of this session Judgment and insight: improving mildly Assessment/Plan: Continue with current diagnosis. Patient continues to meet criteria for inpatient psychiatric admission for symptom stabilization and safety. Patient will be maintained on current psychotropic medication regimen. Monitor for medication compliance and for any psychotropic medication side effects. Will continue to monitor ongoing response to treatment. Encouraged participation in milieu.
--- NOTE | 2024-11-21 11:18 | P.PN ---
Progress Note - Text Progress Note Date: 11/21/24 Interval history: Patient was seen laying in bed today and was directable and agreeable to speak with sign writer letterer or painter. He appears to be fairly cooperative today with sign writer letterer or painter. Denied any overnight complaints. States that he is doing well. Claims that his appetite is improving since yesterday. Not reporting any problems with his medications. At this time patient denies any suicidal or homicidal ideations intent or plan. Denies any Auditory or visual hallucinations. Patient denies any side effects from the medications and has been compliant with meds. Mental status exam: General Appearance: Patient appears to be thin, wearing glasses, stated age is alert, directable, and cooperative. Behavior: No agitated behavior. Patient is calm and directable cooperative Speech: Patient's speech is fluent and nonpressured. Mood/Affect: Mood is improving mildly, affect is congruent and constricted. Suicidality/Homicidality: Patient denies having any suicidal or homicidal ideation intent or plan. Perceptions: Patient denies any auditory or visual hallucinations. Though content/process: There is no evidence of any delusional thought content and thought process is linear and goal-directed. Or future oriented today Memory and concentration: AOX3, grossly intact for the purposes of this session Judgment and insight: improving mildly Assessment/Plan: Continue with current diagnosis. Patient continues to meet criteria for inpatient psychiatric admission for symptom stabilization and safet y. Patient will be maintained on current psychotropic medication regimen. Monitor for medication compliance and for any psychotropic medication side effects. Will continue to monitor ongoing response to treatment. Encouraged participation in milieu.
--- NOTE | 2024-11-22 13:18 | P.PN ---
Progress Note - Text Progress Note Date: 11/22/24 Interval History: Patient was seen wandering the hallways and was directable and agreeable to sp eak with development writer in the office. He states feeling "good" today. He expressed no concerns. He denied any alcohol cravings and was not agreeable with starting naltrexone to help with maintenance of sobriety. He states he has been actively decreasing his alcohol use, down to roughly 3-4 beers per day. He endorses a good support system, living at home with his daughter. He states his anxiety is better. At this time patient denies any suicidal or homicidal ideations, intent or plan. Patient denies any auditory, visual hallucinations and denies any paranoia or delusions. Patient denies any side effects from the medications and has been compliant with meds. Mental Status Exam: General Appearance: Patient appears to be stated age is alert, directable, and cooperative. Behavior: Patient is calmly seated without any agitated behavior. Speech: Patient's speech is fluent and nonpressured. Mood/Affect: Mood is improving mildly, affect is congruent and blunted. Suicidality/Homicidality: Patient denies having any suicidal or homicidal ideation intent or plan. Perceptions: Patient denies any visual hallucinations and denies any auditory hallucinations Though content/process: There is no evidence of any delusional thought content and thought process is linear and goal-directed. Memory and concentration: AOX3, grossly intact for the purposes of this session Judgment and insight: Improving mildly Assessment Major depressive disorder, recurrent, severe with psychotic features Alcohol use disorder Cannabis use disorder Nicotine dependence History of stimulant use disorder Plan: -Patient continues to meet criteria for inpatient psychiatric admission for symptom stabilization and safety. Patient has signed adult voluntary form and medication consent and was placed in patient's chart. -Medications: Continue Zoloft 100 mg daily for depression, Abilify 2.5 mg at bedtime for psychosis, trazodone 50 mg as needed at bedtime for insomnia -When necessary Ativan and Haldol for agitation/aggression. -Labs: Reviewed -NRT -nicotine patch -SW on board for discharge planning. Encouraged the patient to participate in milieu. Anticipate discharge home with family tomorrow
[2024-11-23 07:13] VITALS: BP 116/81; PULSE 88; RESP 16; TEMP 98.2
--- NOTE | 2024-11-23 11:53 | P.DS ---
Providers Date of admission: 11/18/24 15:17 Expected date of discharge: 11/23/24 Attending physician: Robyn Barrera MD Consults: 11/18/24 15:36 Consult Physician Routine Consulting Provider: Addie Vitale Consult Reason/Comments: Medical H&P Do you want consulting provider notified?: Yes Primary care physician: Lucio Head - Discharge Diagnosis(es) (1) Major depressive disorder, recurrent, severe with psychotic features Current Visit: Yes Status: Acute Priority: High (2) Alcohol use disorder Current Visit: Yes Status: Acute Priority: Medium (3) Cannabis use disorder Current Visit: Yes Status: Acute Priority: Medium (4) Nicotine dependence Current Visit: Yes Status: Acute Priority: Low Hospital Course: Admission HPI: Admission note was completed by Dr. Goldsmith "Patient is a 39 years old male with past psychiatric history of suicidal ideation and polysubstance use, presented to the ED for suicidal attempt. The history of auditory hallucination and suicidal ideation. Reported that he tried to tie a zip around his neck. Reported previous attempt via holding rollup pillow case around his neck however he stopped. He reported he had some issue breathing and he called for help, they were able to cut the zip tie off, he has imprint around his neck. he does not follow up with a therapist or a psychiatrist. upon evaluation in the unit, he states that he tried to commit suicide via tying a zip around his neck, he states that he has been struggling with a lot of voices lately and he was drinking alcohol, reported that he came home from the bar, went to his room and tried to end his life. States that his daughter was in the next room with her boyfriend and they heard him and they called ambulance. He admitted to feeling down, sad, depressed, hopeless, helpless, worthless, he denied any current suicidal or homicidal thoughts and reported that he regrets what he did. States that he would like to get some help. States that he attempt suicide 6 months a go via using a pillowcase. He admitted to high anxiety. Denied any manic or hypomanic symptoms. Reported that he has been having auditory hallucination of a female voice for 3 years as he was from his . States that he is paranoid and feels like he has been followed all the time. Reported that he has been using alcohol for the last 2-1/2 to 3 years, reported he had 2 previous DUI s, denied any previous rehab. Reported that he used methamphetamine stopped 3 years ago, admitted to previous history of cocaine and other substance use. Reported he has been using cannabis daily. He denied having access to firearms or guns." Hospital course: Upon admission to the unit patient was directable and agreeable to commence treatment and signed adult voluntary form.. Patient got along well with other patients on the unit and followed unit protocol. Patient was compliant with the medications and denied any side effects throughout hospital course. Patient was started on Zoloft and this was increased to 100 mg daily for depression, Abilify 2.5 mg at bedtime for psychosis, trazodone 50 mg as needed at bedtime for insomnia. Patient spoke of his stressors and engaged in therapy both group and individual. Patient was also seen by medical team for history and physical exam. Throughout the course of the hospitalization patient gradually improved with regards to mood, anxiety, sleep and returned back to their baseline level of functioning. On the day of discharge patient denied any suicidal or homicidal ideations intent or plan denied any auditory or visual hallucinations. The patient denied any access to guns or weapons. Patient denied any paranoia and did not endorse any delusions. Patient does have a significant history of substance abuse and was counseled on abstaining from all substances including alcohol and marijuana. Patient was offered however declined inpatient substance-abuse rehab. Patient also declined any medications to assist with maintenance of sobriety from alcohol use. Patient was also counseled on the medications and need for regular compliance and was encouraged to follow-up with their outpatient appointment for mental health and also for primary care. Patient to be discharged back home with daughter with [facility] follow-up. Mental status exam: General Appearance: Patient appears to be stated age is alert, pleasant, and cooperative. Patient is in no acute distress and has improved hygiene and grooming Behavior: Patient is calmly seated without any agitated behavior. Speech: Patient's speech is fluent and nonpressured. Mood/Affect: Patient reports their mood is "good", affect is congruent and euthymic. Suicidality/Homicidality: Patient denies having any suicidal or homicidal ideation intent or plan. Perceptions: Patient denies any auditory or visual hallucinations. Though content/process: There is no evidence of any delusional thought content and thought process is linear and goal-directed. More future oriented Memory and concentration: AOX3, grossly intact for the purposes of this session. Can spell "WORLD" backwards correctly. Judgment and insight: Fair Impression: Major depressive disorder, recurrent, severe with psychotic features Alcohol use disorder Cannabis use disorder Nicotine dependence Plan: -Continue with discharge today as patient has improved and stabilized psychiatrically and is not currently an imminent threat to themself and/or others. -Continue medications: Zoloft 100 mg daily, Abilify 2.5 mg at bedtime, trazodone 50 mg as needed at bedtime -Patient was counseled on the need for medication compliance and appropriate follow-up at mental health and also primary care for medical issues. Patient verbalized understanding and agreed. -Social work to help coordinate patients discharge today arrange for and conduct family meeting to ensure safety upon discharge and answer any questions/concerns. also to ensure safe home environment that guns/weapons are either removed from the home or locked away. Social work also to arrange for patients follow up appointments with [facility] for psychiatric care along with follow up with primary care provider. -Patient counseled on abstaining from recreational drugs and marijuana and alcohol. Was informed/educated on the adverse effects on their physical and mental health. Patient verbally agreed and understood. Patient was offered substance abuse treatment however declined at this time. -Patient was instructed to return to the hospital or seek immediate medical care if their psychiatric or medical symptoms do worsen or reoccur. Abnormal Labs 11/17/24 11/17/24 11/19/24 23:08 23:10 09:54 Carbon Dioxide 21 L Total Protein 8.7 H Albumin 5.1 H 5.4 H Cholesterol 232.00 H LDL Cholesterol, Calc 147.3 H HDL Cholesterol 64.50 H U Marijuana (THC) Screen Detected H Vital Signs Temp 98.2 F 11/23/24 06:41 Pulse 88 11/23/24 06:41 Resp 16 11/23/24 06:41 BP 116/81 11/23/24 06:41 Pulse Ox 99 11/23/24 06:41 FiO2 Allergies Allergy/AdvReac Type Severity Reaction Status Date / Time No Known Allergies Allergy Verified 11/18/24 08:33 Patient Condition at Discharge: Stable Plan - Discharge Summary Discharge Rx Participant: Yes New Discharge Prescriptions: New ARIPiprazole [Abilify] 2.5 mg PO HS 30 Days #15 tab Nicotine 14Mg/24Hr Patch [Habitrol] 1 patch TRANSDERM DAILY patch traZODone HCL [Desyrel] 50 mg PO HS PRN 30 Days #30 tab PRN Reason: Insomnia Folic Acid 1 mg PO DAILY 30 Days #30 tab Multivitamins, Thera [Multivitamin (formulary)] 1 each PO DAILY 30 Days #30 tab Thiamine [Vitamin B-1] 100 mg PO DAILY 30 Days #30 tab Sertraline [Zoloft] 100 mg PO DAILY 30 Days #60 tab Discontinued Sertraline [Zoloft] 50 mg PO DAILY #30 tab Discharge Medication List ARIPiprazole [Abilify] 2.5 mg PO HS 30 Days #15 tab 11/22/24 [Rx] Folic Acid 1 mg PO DAILY 30 Days #30 tab 11/22/24 [Rx] Multivitamins, Thera [Multivitamin (formulary)] 1 each PO DAILY 30 Days #30 tab 11/22/24 [Rx] Nicotine 14Mg/24Hr Patch [Habitrol] 1 patch TRANSDERM DAILY patch 11/22/24 [Rx] Sertraline [Zoloft] 100 mg PO DAILY 30 Days #60 tab 11/22/24 [Rx] Thiamine [Vitamin B-1] 100 mg PO DAILY 30 Days #30 tab 11/22/24 [Rx] traZODone HCL [Desyrel] 50 mg PO HS PRN 30 Days #30 tab 11/22/24 [Rx] [facility] 1:00 pm (with Lucio Fabian MD [Primary Care Provider] - 1-2 days Patient Instructions/Handouts: How to Stop Smoking (DC), Depression (DC), Abuse of Alcohol (DC) Activity/Diet/Wound Care/Special Instructions: [facility] Discharge Info Avoid the use of street drugs and alcohol. Take all medications as prescribed. When you are in need of refills on your medications, please contact your outpatient medical provider and/or outpatient psychiatrist. Please go to your scheduled outpatient appointments for aftercare treatment. If symptoms return or become worse, call the crisis line at or and/or visit the nearest emergency room for assistance. National Suicide and Crisis Li feline - call or text 982 Discharge Disposition: HOME SELF-CARE
== END 2024-11-23 11:05 | disposition home or self-care (01) | DRG 751 ==
LOC: EC 22:44 → 3MHU 11-18 15:17
PROVIDERS: ADMIT Psychiatry & Neurology Psychiatry; ATTEND Psychiatry & Neurology Psychiatry
DX: F33.3 Major depressive disorder, recurrent, severe with psychotic symptoms (principal); F10.129 Alcohol abuse with intoxication, unspecified; F12.10 Cannabis abuse, uncomplicated; F17.200 Nicotine dependence, unspecified, uncomplicated; T14.91XA Suicide attempt, initial encounter; F15.10 Other stimulant abuse, uncomplicated; F41.9 Anxiety disorder, unspecified; Z63.5 Disruption of family by separation and divorce; Z79.899 Other long term (current) drug therapy
CPT/HCPCS: 36415; 70450; 70496; 70498; 71045; 80053; 80061; 80076; 80306; 80320; 81003; 82075; 83036; 84443; 85025; 85610; 85730; 87635; 93005; 96360; 96361; 99285